=== PATIENT | female | born 2000 | race African-American/Black ===

== ENCOUNTER 2023-06-13 04:00 | Emergency (ER) | payer MEDICAID ==
[~2023-06-13] VITALS: Ht 160 cm; Wt 68.0 kg
[2023-06-13 04:07] VITALS: TEMP 98.3; O2SAT 99
[2023-06-13] MEDS: ACETAMINOPHEN 325MG TABLET PO ONE (05:58)
[2023-06-13] MEDS ORDERED: TOPUD PO (07:22)
[2023-06-13 08:15] VITALS: BP 109/80; PULSE 85; RESP 18
== END 2023-06-13 08:27 | disposition home or self-care (01) ==
LOC: ER 04:00
DX: S40.021A Contusion of right upper arm, initial encounter (principal); Y03.0XXA Assault by being hit or run over by motor vehicle, initial encounter; Y93.89 Activity, other specified; Y92.89 Other specified places as the place of occurrence of the external cause; Y99.8 Other external cause status
CPT/HCPCS: 73060; 73090; 99284

== ENCOUNTER 2024-11-10 11:13 | Emergency (ER) | payer MEDICAID ==
[~2024-11-10] VITALS: Ht 160 cm; Wt 65.0 kg
[~2024-11-10 11:13] MED LIST: TOPUD PO
[2024-11-10] MEDS: MORPHINE SULFATE 4 MG/ML INJ (FOR IV/IM USE) IV STA (11:50)
[2024-11-10] MEDS: MORPHINE SULFATE 4 MG/ML INJ (FOR IV/IM USE) IV ONE (12:44)
[2024-11-10 12:49] LABS: BASOPHILS % 0.5 % (0.0-2.0); EOSINOPHILS % 0.7 % (0.0-5.0); HEMATOCRIT. 38.3 % (36.0-48.0); HEMOGLOBIN. 12.3 g/dL (12.0-16.0); LYMPHOCYTES % 21.8 % (20.0-50.0); MEAN PLATELET VOLUME 8.3 fl (7.4-10.4); MONOCYTES % 12.9 % (2.0-8.0); NEUTROPHILS % 64.1 % (40.0-76.0); PLATELET 289 x1000/uL (130-400); RED BLOOD CELL COUNT 4.30 mill/uL (4.2-5.4); RED CELL DISTRIBUTION WIDTH 15.6 % (11.6-14.6)
[2024-11-10 13:03] LABS: CREATININE 0.8 mg/dL (0.6-1.0); UREA NITROGEN BLOOD 6 mg/dL (9-23)
[2024-11-10 14:25] VITALS: O2SAT 100
[2024-11-10] MEDS: PROPOFOL 200MG/20ML VIAL IV ONE (14:28)
[2024-11-10] MEDS: KETAMINE HCL 50 MG/ML 10ML IV ONE (14:28)
[2024-11-10] MEDS: ONDANSETRON HCL 4MG/2ML INJ IV ONE (14:28)
[2024-11-10] MEDS ORDERED: IBUP-2028 PO (14:49)
[2024-11-10 15:00] VITALS: TEMP 36.6
[2024-11-10 17:21] VITALS: BP 131/82; PULSE 84; RESP 19; O2SAT 99
== END 2024-11-10 17:45 | disposition home or self-care (01) ==
LOC: ER 11:13
DX: S43.004A Unspecified dislocation of right shoulder joint, initial encounter (principal); Z79.899 Other long term (current) drug therapy; Z79.1 Long term (current) use of non-steroidal anti-inflammatories (NSAID); X58.XXXA Exposure to other specified factors, initial encounter; Y93.89 Activity, other specified; Y92.89 Other specified places as the place of occurrence of the external cause; Y99.8 Other external cause status
CPT/HCPCS: 80048; 85025; 36415; 73030; 23650; 96374; 96376; 99152; 99285; J3490; J2405; J2704; J2270; Z7610 ×2